=== PATIENT | male | born 1965 | race Caucasian/White ===

== ENCOUNTER 2018-07-04 21:57 | Emergency (ER) | payer OTHER ==
[~2018-07-04] VITALS: Ht 175.3 cm; Wt 88.1 kg
[2018-07-04 22:25] VITALS: BP 119/85
[2018-07-04] MEDS: LIDOCAINE WITH 8.4% SOD BICARB 3 ML DISP.SYRIN. INJ ONE (22:51)
[2018-07-04] MEDS ORDERED: SULF1TAB24 PO (23:28)
--- NOTE | 2018-07-04 23:28 | PHYS DOC ---
Past Medical History Past Medical History: No Pertinent History Past Surgical History: No Surgical History Alcohol Use: None Drug Use: None Adult General Chief Complaint Chief Complaint: LACERATION/AVULSION HPI HPI Patient is a 53 year old male presents to the ED complaining of left hand laceration times one hour ago. States he was using a knife to cut something open and accidentally cut the top of his left hand. Describes the pain as sharp. Rates the pain as 4-10. Denies decreased range of motion, weakness, paresthesias, headache, fever, nausea/vomiting, dizziness. Review of Systems Review of Systems Constitutional: Denies fever or chills [] Eyes: Denies change in visual acuity, redness, or eye pain [] HENT: Denies nasal congestion or sore throat [] Respiratory: Denies cough or shortness of breath [] Cardiovascular: No additional information not addressed in HPI [] GI: Denies abdominal pain, nausea, vomiting, bloody stools or diarrhea [] : Denies dysuria or hematuria [] Musculoskeletal: Complains of hand laceration. Denies back pain or joint pain [] Integument: Denies rash or skin lesions [] Neurologic: Denies headache, focal weakness or sensory changes [] All other systems were reviewed and found to be within normal limits, except as documented in this note. Current Medications Current Medications Current Medications Medications (Trade) Dose Ordered Sig/Natalie Start Time Stop Time Status Last Admin Dose Admin Diphtheria/ Tetanus/Acell Pertussis (Boostrix) 0.5 ml ONCE ONCE 07/04/18 23:30 07/04/18 23:31 DC 07/04/18 23:34 0.5 ML Lidocaine/Sodium Bicarbonate (Buffered Lidocaine 1%) 3 ml 1X ONCE 07/04/18 22:55 07/04/18 22:56 DC 07/04/18 22:51 3 ML Allergies Allergies Allergies Coded Allergies Type Severity Reaction Last Updated Verified No Known Drug Allergies 07/04/18 No Physical Exam Physical Exam Constitutional: Well developed, well nourished, no acute distress, non-toxic appearance. [] HENT: Normocephalic, atraumatic Skin: Warm, dry, no erythema, no rash. [] Back: No tenderness, no CVA tenderness. [] Extremities: 2 cm left dorsal hand laceration. No tendon laceration. No bony tenderness, no cyanosis, no clubbing, ROM intact, no edema. [] Neurologic: Alert and oriented X 3, normal motor function, normal sensory function, no focal deficits noted. [] Psychologic: Affect normal, judgement normal, mood normal. [] Current Patient Data Vital Signs Vital Signs Date Time Temp Pulse Resp B/P (MAP) Pulse Ox O2 Delivery O2 Flow Rate FiO2 07/04/18 22:25 98.4 75 18 119/85 (96) 98 Room Air 98.4 EKG EKG [] Radiology/Procedures Radiology/Procedures [] Course & Med Decision Making Course & Med Decision Making Pertinent Labs and Imaging studies reviewed. (See chart for details) []No bony tenderness. No tendon laceration. Full range of motion. Laceration repaired. No complications. Tetanus updated. Discussed symptomatic treatment and wound care. Discussed follow-up for wound reevaluation in 3 days. Provided contact information/education. Discussed reasons to return to the ED. Patient understands and agrees with plan. Attending physician attestation: I was working at the time of this patient's ER visit and was available for consultation, but did not personally interview, examine, or directly take part in the patient's care. DO Chucho aKur Disclaimer Dragon Disclaimer This electronic medical record was generated, in whole or in part, using a voice recognition dictation system. Departure Departure Impression: Primary Impression: Hand laceration Disposition: 01 HOME, SELF-CARE Condition: IMPROVED Referrals: NO PCP (PCP) LUIS SUE MD Patient Instructions: Laceration Care, Adult Scripts Sulfamethoxazole/Trimethoprim (BACTRIM DS TABLET) 1 Each Tablet 1 TAB PO BID for 7 Days, #14 TAB Prov: GA PRICE 07/04/18 Laceration/Wound Repair Laceration/Wound Repair : Wound Location: upper extremity Wound's Depth, Shape: superficial Wound Length (cm): 2 Wound Explored: clean Irrigated w/ Saline (ccs): 500 Betadine Prep?: Yes Anesthesia: 1% Lidocaine Volume Anesthetic (ccs): 3 Wound Repaired With: sutures Suture Size/Type: 3:0, proline Number of Sutures: 5 Progress Tolerated well. No complications. GA PRICE Jul 04, 2018 23:28 TANVI ROJO DO Jul 08, 2018 06:16
[2018-07-04] MEDS: DIPHTH,PERTUSS(ACELL),TET TOX 0.5 ML DISP.SYRIN. VAX IM ONE (23:34)
== END 2018-07-04 23:43 | disposition home or self-care (01) ==
LOC: ER 21:57
DX: S61.412A Laceration without foreign body of left hand, initial encounter (principal); W26.0XXA Contact with knife, initial encounter; Y93.89 Activity, other specified; Y92.89 Other specified places as the place of occurrence of the external cause; Y99.8 Other external cause status
CPT/HCPCS: 12001; 12002; 90471; 90715; 99283-25